=== PATIENT | female | born 1950 | race Caucasian/White ===

== ENCOUNTER 2022-07-02 16:10 | Outpatient (CLI) | payer OTHER | END 2022-07-02 16:11 | disposition home or self-care (01) | LOC: NAV RAD 16:10 | PROVIDERS: ATTEND Family Medicine | DX: M79.89 Other specified soft tissue disorders (principal); M18.11 Unilateral primary osteoarthritis of first carpometacarpal joint, right hand ==

== ENCOUNTER 2023-02-04 08:56 | Outpatient (CLI) | payer OTHER | END 2023-02-04 08:57 | disposition home or self-care (01) | LOC: NAV RAD 08:56 | PROVIDERS: ATTEND Neurological Surgery | DX: M47.22 Other spondylosis with radiculopathy, cervical region (principal); Z98.890 Other specified postprocedural states | CPT/HCPCS: 72040 ==

== ENCOUNTER 2023-03-17 10:30 | Outpatient (CLI) | payer OTHER | END 2023-03-17 10:31 | disposition home or self-care (01) | LOC: NAV RAD 10:30 | PROVIDERS: ATTEND Neurological Surgery | DX: M54.12 Radiculopathy, cervical region (principal) | CPT/HCPCS: 72040 ==

== ENCOUNTER 2023-09-15 16:15 | Outpatient (CLI) | payer OTHER | END 2023-09-15 16:16 | disposition home or self-care (01) | LOC: NAV RAD 16:15 | PROVIDERS: ATTEND Nurse Practitioner Family | DX: M70.21 Olecranon bursitis, right elbow (principal) ==

== ENCOUNTER 2024-04-25 18:14 | Outpatient (CLI) | payer OTHER | END 2024-04-25 18:15 | disposition home or self-care (01) | LOC: NAV RAD 18:14 | PROVIDERS: ATTEND Internal Medicine Hematology & Oncology | DX: C34.31 Malignant neoplasm of lower lobe, right bronchus or lung (principal); D47.3 Essential (hemorrhagic) thrombocythemia; E04.2 Nontoxic multinodular goiter; N18.31 Chronic kidney disease, stage 3a; D53.9 Nutritional anemia, unspecified; D63.1 Anemia in chronic kidney disease; R91.8 Other nonspecific abnormal finding of lung field; J90 Pleural effusion, not elsewhere classified; Z90.2 Acquired absence of lung [part of] | CPT/HCPCS: 71046 ==

== ENCOUNTER 2024-10-14 10:34 | Outpatient (CLI) | payer OTHER | END 2024-10-14 10:35 | disposition home or self-care (01) | LOC: NAV RAD 10:34 | PROVIDERS: ATTEND Internal Medicine Critical Care Medicine | DX: R06.00 Dyspnea, unspecified (principal); J98.4 Other disorders of lung | CPT/HCPCS: 71046 ==

== ENCOUNTER 2025-06-29 10:47 | Outpatient (CLI) | payer OTHER | END 2025-06-29 10:48 | disposition home or self-care (01) | LOC: NAV RAD 10:47 | PROVIDERS: ATTEND Physician Assistant Medical | DX: N18.9 Chronic kidney disease, unspecified (principal); R06.2 Wheezing; R11.0 Nausea; R10.11 Right upper quadrant pain; I48.91 Unspecified atrial fibrillation; R19.7 Diarrhea, unspecified; R42 Dizziness and giddiness; Z85.118 Personal history of other malignant neoplasm of bronchus and lung | CPT/HCPCS: 71046 ==